=== PATIENT | male | born 1970 | race Caucasian/White ===

== ENCOUNTER 2018-09-15 00:36 | Inpatient (IN) | payer SELFPAY ==
[2018-09-15] VITALS (8 sets, daily range): BP systolic 142–171; BP diastolic 89–113; Ht 175.3 cm; Wt 87.7 kg
[~2018-09-15] VITALS: Ht 175.3 cm; Wt 87.7 kg
--- NOTE | 2018-09-15 01:20 | NUR ---
URINE SENT TO LAB
[2018-09-15 01:59] LABS: UDS - AMPHET POSITIVE QUAL (NEGATIVE); UDS - BARB NEGATIVE QUAL (NEGATIVE); UDS - BENZO NEGATIVE QUAL (NEGATIVE); UDS - COCAINE NEGATIVE QUAL (NEGATIVE); UDS - OPIATE NEGATIVE QUAL (NEGATIVE); UDS - PCP NEGATIVE QUAL (NEGATIVE); UDS - THC NEGATIVE QUAL (NEGATIVE)
[2018-09-15 02:04] LABS: BASOPHILS 0.1 % (0-2); EOSINOPHILS 0 % (0-7); HEMATOCRIT 38.5 % (42.0-54.0); HEMOGLOBIN 13.7 g/dL (13.5-17.5); IMMATURE GRANULOCYTES 0.4 % (0-5); LYMPHOCYTES 3.9 % (15-50); MCH 30.4 pg (26.0-34.0); MCHC 35.6 g/dL (31.0-37.0); MCV 85.4 fL (80.0-100.0); MEAN PLATELET VOLUME 10.5 fL (7.4-10.4); MONOCYTES 3.3 % (2-11); NEUTROPHILS 92.3 % (40-80); PLATELET COUNT 147 10x3/uL (130-400); RBC 4.51 10x6/uL (4.20-6.10); RDW 12.9 % (11.5-14.5); WBC 16.2 10x3/uL (4.8-10.8)
[2018-09-15 02:17] LABS: APTT 35.5 SECONDS (22.8-39.4); INR 1.94 (0.85-1.17); PROTIME 21.5 SECONDS (11.6-15.0)
[2018-09-15 02:18] LABS: D-DIMER-QUANTITATIVE 1.34 ug/mLFEU (0.20-0.54)
[2018-09-15 02:25] LABS: APPEARANCE HAZY (CLEAR); BILIRUBIN NEGATIVE (NEGATIVE); COLOR YELLOW (YELLOW); GLUCOSE NEGATIVE (NEGATIVE); KETONE NEGATIVE (NEGATIVE); NITRITE NEGATIVE (NEGATIVE); PROTEIN 3+ mg/dL (NEGATIVE); UROBILINOGEN NORMAL (NORMAL)
[2018-09-15 02:26] LABS: BACTERIA MODERATE /hpf (NONE SEEN); EPITHELIAL CELLS 0-5 /hpf (0-5); HYALINE CAST 0-5 /lpf (NONE SEEN); RED CELLS - URINE 0-5 /hpf (0-5); WHITE CELLS - URINE 0-5 /hpf (0-5)
[2018-09-15 02:36] LABS: ALBUMIN 2.4 g/dL (3.4-5.0); ALKALINE PHOSPHATASE 62 U/L (46-116); ALT (SGPT) 31 U/L (10-68); BILIRUBIN - TOTAL 1.89 mg/dL (0.2-1.3); CALC OSMOLALITY 277 mosm/kg (275-300); CALCIUM 7.5 mg/dL (8.5-10.1); CARBON DIOXIDE 22.4 mmol/L (21.0-32.0); CHLORIDE - SERUM 100 mmol/L (98-107); CKMB 0.5 U/L (0.0-3.6); CREATINE KINASE 184 UL (21-232); CREATININE - SERUM 1.6 mg/dL (0.6-1.3); GLUCOSE 140 mg/dL (74-106); SODIUM 135 mmol/L (136-145); UREA NITROGEN 29 mg/dL (7-18); eGFR NON AFRICAN AMERICAN 49 mL/min (90-120)
--- NOTE | 2018-09-15 02:40 | NUR ---
CALLED LAB TO CHECK ON PT CHEMISTRY PANEL. LAB STATED IT WAS BEING RUN. NOTIFIED DR. VALENZUELA. PT RESTING NO DISTRESS NOTED.
[2018-09-15 02:49] LABS: POTASSIUM - SERUM 2.8 mmol/L (3.5-5.1); TROPONIN-I 0.457 ng/mL (0.000-0.060)
--- NOTE | 2018-09-15 05:16 | NUR ---
RECIEVED REPORT FROM ER. ARRIVED TO FLOOR ON STRETCHER. TRANSFERED SELF TO BED. TOOK A SKOWER. IV TO LEFT FA WITH NS KCL INFUSING AT 125CC/HR. RIGHT LOWER EXTREMITY RED AND WARM. HAS SEVERAL SMALL SORES TO LEGS BILATERALLY. LETHARGIC AND HAS DIFFICULT TIME STAYING AWAKE AT TIMES. TAKES NO MEDICATIONS. TELEMETRY IN PLACE. DENIES ANY NEEDS AT THIS TIME.
--- NOTE | 2018-09-15 06:56 | NUR ---
BEDSIDE REPORT NOT ABLE TO BE DONE, PATIENT IS OFF THE FLOOR TO LUNG SCAN. WHITE BOARD UPDATED.
--- NOTE | 2018-09-15 07:28 | NUR ---
PATIENT ARRIVED BACK TO THE ROOM VIA BED. INTRODUCTIONS MADE, RESTARTED IVF TO THE LEFT WRIST. PATIENT SLEEPING ON HIS LEFT SIDE, HANDS SOILD, LIGHTS OFF, AND CARE LIGHT IN REACH.
[2018-09-15 09:24] LABS: CKMB 1.2 U/L (0.0-3.6); CREATINE KINASE 214 UL (21-232)
[2018-09-15 09:30] LABS: TROPONIN-I 0.378 ng/mL (0.000-0.060)
--- NOTE | 2018-09-15 13:02 | NUR ---
CALLED AND LEFT VOICE MAIL ON DR UNDERWOOD NURSE, DR UNDERWOOD IS HOSIERY MATER FOR DR LANG AT THIS TIME. AWAITING A RETURN CALL
--- NOTE | 2018-09-15 13:21 | NUR ---
DR GONZALES NOTIFIED IN PERSON ABOUT THE B/P
--- NOTE | 2018-09-15 13:49 | NUR ---
VERBAL ORDER TO "GO AHEAD AND FEED HIM", NO PROCEDURES WITH CELLULITIS, RISK OF INFECTION. FROM DR GONZALES
[2018-09-15 14:14] LABS: CKMB 1.4 U/L (0.0-3.6); CREATINE KINASE 236 UL (21-232)
--- NOTE | 2018-09-15 19:34 | NUR ---
EVENING ROUNDS MADE. PT LAYING IN BED RESTING PLAYING ON HIS PHONE. PT DENIES PAIN AT THIS TIME. EXAMINED PT BLE. RLE RED, SWOLLEN, WARM TO TOUCH. LLE SCABS/SORES NOTED, NO SWELLING. PT DENIES FURTHER NEEDS AT THIS TIME. BED LOWERED AND LOCKED. CL IN REACH. WILL CTM.
[2018-09-16] VITALS: BP 153/111
--- NOTE | 2018-09-16 00:40 | NUR ---
I have reviewed this patient and I concur with the Shift Assessment completed by the Licensed Practical Nurse today this shift.
--- NOTE | 2018-09-16 00:49 | NUR ---
APRESOLINE GIVEN VIA IV TO L FA FOR BP OF 170/115. PT DENIES FURTHER NEEDS AT THIS TIME. WILL CTM.
[2018-09-16 04:00] VITALS: BP 153/113
[2018-09-16 05:39] LABS: ALBUMIN 2.3 g/dL (3.4-5.0); BILIRUBIN - TOTAL 1.35 mg/dL (0.2-1.3); CALCIUM 7.6 mg/dL (8.5-10.1); CARBON DIOXIDE 24.1 mmol/L (21.0-32.0); CREATININE - SERUM 1.3 mg/dL (0.6-1.3); PROTEIN - SERUM 6.3 g/dL (6.4-8.2)
[2018-09-16 05:47] LABS: HEMATOCRIT 42.1 % (42.0-54.0); HEMOGLOBIN 14.5 g/dL (13.5-17.5); LYMPHOCYTES 4.1 % (15-50); MCH 30.2 pg (26.0-34.0); MCHC 34.4 g/dL (31.0-37.0); MEAN PLATELET VOLUME 10.6 fL (7.4-10.4); NEUTROPHILS 92.3 % (40-80); RDW 13.3 % (11.5-14.5); WBC 19.2 10x3/uL (4.8-10.8)
[2018-09-16 05:52] LABS: ANION GAP 11.5 mmol/L (8-16); POTASSIUM - SERUM 3.6 mmol/L (3.5-5.1)
[2018-09-16 05:54] LABS: MCV 87.7 fL (80.0-100.0); PLATELET COUNT 111 10x3/uL (130-400)
--- NOTE | 2018-09-16 07:23 | NUR ---
INITIAL ROUNDING, WHITE BOARD UPDATED. PATIENT IS AWAKE AND RESTING IN BED. CALL LIGHT IN REACH, PROVIDED A LARGE CUP OF ICE FOR HIS SODA. CARDIOLOGY CONSULT CALLED IN BY UNIT SEC, ELECTROLYTE PROTOCOL NEEDS NO COVERAGE TODAY. PATIENT REPORTS PAIN OF 5/10 IN THE RIGHT LEG, DECLINES THE NEED FOR PAIN MED AT THIS TIME
[2018-09-16 15:24] VITALS: BP 91/63
--- NOTE | 2018-09-16 19:20 | NUR ---
PT UP WALKING AROUND. GAIT STEADY, BUT SLOW. PT LAID BACK DOWN. DENIES ANY NEEDS. NO S/S OF DISTRESS. PT IS AAO. LEFT LEG NOTED TO BE BRIGHT RED, SWOLLEN, WARM AND TENDER APPROX 2 INCHES UNDER KNEE TO ANKLE. PT LEFT LEG HAS WHAT APPEARS TO BE BUG BITES ALL OVER LEG. PT DENIES ANY NEEDS. NAME AND DATE PLACED ON BOARD. BED LOW AND CALL LIGHT IN REACH. WILL CPOC
[2018-09-16 20:00] VITALS: BP 94/64
--- NOTE | 2018-09-16 20:12 | NUR ---
PT ASKING FOR WATER. PT RECEIVED. PLACED TELEMETRY BACK ONTO PT. PT HAS NO S/S OF DISTRESS. NS WITH KCL INFUSING ORDERED. PT BED LOW AND CALL LIGHT IN REACH. WILL CPOC
--- NOTE | 2018-09-16 20:40 | NUR ---
LOVENOX GIVEN. PT VERBALIZED UNDERSTANDING IN LOVENOX MEDICATION. NO S/S OF DISTRESS. WILL CPOC
--- NOTE | 2018-09-16 20:54 | NUR ---
PT COMPLAINS OF PAIN IN RIGHT LEG. TYLENOL GIVEN ORDERED. UNHOOKED PT FROM NS WITH 20 MEQ OF KCL TO ALLOW PT TO SHOWER WITH DISH UP PERSON ASSIST, PT WILL CALL ONCE DONE IN SHOWER. NO S/S OF DISTRESS. WILL CPOC
--- NOTE | 2018-09-17 01:13 | NUR ---
VANC STARTED ORDERED TO LEFT FOREARM. PT LAYING IN BED WITH EYES CLOSED. RESP EVEN AND UNLABORED. AROUSES TO VERBAL STIMULI. PT VERBALZIED UNDERSTANDING OF NPO AFTER MIDNIGHT. NO NOURISHMENT OR FOOD AT BED SIDE. NPO SIGN ON DOOR. PT DENIES ANY QUESTIONS OR CONCERNS. WILL CPOC
[2018-09-17 04:00] VITALS: BP 121/83
[2018-09-17 05:37] LABS: BASOPHILS 0.2 % (0-2); EOSINOPHILS 0.5 % (0-7); HEMATOCRIT 40.3 % (42.0-54.0); HEMOGLOBIN 13.7 g/dL (13.5-17.5); IMMATURE GRANULOCYTES 0.4 % (0-5); LYMPHOCYTES 8.2 % (15-50); MCV 88.2 fL (80.0-100.0); MONOCYTES 6.9 % (2-11); NEUTROPHILS 83.8 % (40-80); RBC 4.57 10x6/uL (4.20-6.10); RDW 13.8 % (11.5-14.5)
[2018-09-17 05:40] LABS: PLATELET COUNT 136 10x3/uL (130-400); WBC 12.4 10x3/uL (4.8-10.8)
[2018-09-17 05:45] LABS: ANION GAP 13.7 mmol/L (8-16); CARBON DIOXIDE 21.1 mmol/L (21.0-32.0); CREATININE - SERUM 1.4 mg/dL (0.6-1.3); POTASSIUM - SERUM 3.8 mmol/L (3.5-5.1)
--- NOTE | 2018-09-17 07:52 | NUR ---
PATIENT IS GETTING A SCAN TODAY. CARDIOLITE LEXISCAN BY [facility]. CHANGING HIS IV OUT RIGHT NOW, BECAUSE HIS CURRENT IV IS TENDER AND THEY HAVE TO INJECT ALOT OF FLUID TO DO THE STRESS TEST AT 10:00. AFTER THAT HE DOES WANT TO DISCHARGE IF POSSIBLE.
--- NOTE | 2018-09-17 08:22 | NUR ---
22GUAGE IV CATHETER PLACED RT AC. ASPIRATED AND FLUSHED WITH 3ML SALINE. SECURED WITH OPSITE AND TRANSPORE TAPE.
[2018-09-17 08:37] VITALS: BP 124/82
--- NOTE | 2018-09-17 09:02 | NUR ---
PATIENT IS RESTING ON HIS BACK IN BED AT THIS TIME, TALKING ON THE PHONE. HE STATES THAT HE DOES NOT WANT TO STAY AFTER HIS STRESS TEST. HE DOES HAVE A NEW IV IN HIS RIGHT ARM THAT WAS PLACED SO THAT HE CAN HAVE HIS STRESS TEST THIS MORNING SUCCESSFULLY. HE HAS REDDNESS ON HIS RIGHT LEG, IN THE CALF. HE IS AWAKE AND ALERT AND DENIES ANY NEEDS AT THIS TIME.
--- NOTE | 2018-09-17 12:11 | NUR ---
PATIENT IS BACK FROM THE FIRST PART OF HIS SCAN. NOW HE IS WAITING FOR THE SECOND PART OF THE STRESS TEST, WHEN THAT IS COMPLETE HE WANTS TO BE DISCHARGED SOON POSSIBLE.
[2018-09-17] MEDS ORDERED: LISINOPRIL10 MG PO (13:12)
[2018-09-17] MEDS ORDERED: COREG12.5 MG PO (13:12)
[2018-09-17] MEDS ORDERED: CLEOCIN HCL300 MG PO (13:13)
--- NOTE | 2018-09-17 13:47 | EC ---
PATIENT:YUSRA GONZALEZ DATE OF SERVICE: 09/15/18 SEX: M MEDICAL RECORD: [id number] DATE OF : [birth year] LOCATION:D.M2 D.214 AGE OF PATIENT: 48 ADMISSION DATE: 09/15/18 REFERRING PHYSICIAN: INTERPRETING PHYSICIAN: CIARA ODONNELL MD ECHOCARDIOGRAM REPORT ECHO CHARGES 4 ECHO COMPLETE Date: 09/15/18 CLINICAL DIAGNOSIS: POSSIBLE ENDOCARDITIS, CARDIOMEGALY ECHOCARDIOGRAPHIC MEASUREMENTS (adult normal given) AC root (d.<3.7cm) 4.0 cm LV Septum d (<1.2 cm> 1.3 cm Valve Excursion 1.5 cm LV Septum (systole) 1.7 cm Left Atria (s.<4.0cm> 4.1 cm LVPW d(<1.2cm) 1.4 cm RV (d.<2.3cm) 4.5 cm LVPW (sytole) 2.0 cm LV diastole(<5.6CM) 7.2 cm MV E-F(>70mm/sec) cm LV systole 5.4 cm LVOT Diameter 2.1 cm MV exc.(>10mm) 1.7 cm Est.ejection fraction (50-75%) % DOPPLER: LVIT cm/sec A 31.0 cm/sec E 105 cm/sec LA cm/sec RVSP 46 mmHg LVOT 62 cm/sec AOP1/2T m/s Asc. Ao 96 cm/sec RVOT 87 cm/sec RA cm/sec PA 97 cm/sec AV Gradient Peak 3.72 mmHg AV Mean 2.51 mmHg AV Area 1.7 cm MV Gradient Peak 5.77 mmHg MV Mean 1.82 mmHg MV Area cm COMMENTS: Nutritional Services Host: Jose LACY Cath Lab Manager: 1 Dr. Odonnell TAPE# PACS Pericardial Effusion N DATE OF SERVICE: 09/15/2018 FINDINGS: 1. Left ventricular chamber size is dilated. Left ventricular systolic function is markedly reduced. Overall ejection fraction in the 25% range. 2. Left atrium is enlarged at 4.1 cm. Right atrium and right ventricular chamber sizes are as well mildly dilated. 3. Valvular structures have normal structure and motion. 4. Doppler interrogation reveals moderate mitral regurgitation, moderate tricuspid regurgitation, no other valvular insufficiency or stenosis. Pulmonary ECHOCARDIOGRAM REPORT [id number] YUSRA GONZALEZ systolic pressure is estimated at 46 mmHg. 5. No evidence of pericardial effusion or left ventricular thrombus. TRANSINT:[id number] Voice Confirmation ID: [id number] DOCUMENT ID: [id number] CIARA ODONNELL MD at 1347 CC: [id number] DICTATION DATE: 09/17/18 1106 LOOM CLEANER: 09/17/18 1244 ADM IN [facility] [address] [id number]
--- NOTE | 2018-09-17 15:59 | NUR ---
PATIENT IS BEING DISCHARGED. ALL DISCHARGE PAPERS HAVE BEEN READ THROUGH AND SIGNED. PATIENT EDUCATION COMPLETED. IV IN LEFT AND RIGHT FOREARMS REMOVED WITH CATHETERS INTACT PATIENT TOLERATED. HE HAS REMOVED ALL HIS BELONGINGS FROM THE ROOM. HE IS LEAVING THE FLOOR BY WHEELCHAIR AND GOING HOME WITH A FAMILY MEMBER.
--- NOTE | 2018-09-17 16:51 | MORECARE ---
CASE MANAGEMENT DISCHARGE SUMMARY PATIENT: YUSRA GONZALEZ UNIT: [id number] ADM DATE: 09/15/18 AGE: 48 : [birth year] SEX: M ROOM/BED: D.2140 AUTHOR: RACH,DOC PHYSICIAN: REFERRING PHYSICIAN: CRISTINA GONZALES MD DATE OF SERVICE: 09/17/18 Discharge Plan Patient Name: YUSRA GONZALEZ Facility: [facility]:[place] : 1970 Planned Disposition: Home Anticipated Discharge Date: 09/17/18 Discharge Date: Expected LOS: 2 Initial Reviewer: [email or web address] Initial Review Date: 09/17/2018 Generated: 09/17/18 5:51 pm Comments DCP- Discharge Planning Updated by [email or web address]: Mika Brar on 09/17/18 3:[address] Patient Name: YUSRA GONZALEZ Admission Status: ER Accout number: [id number] Admission Date: 09-15-2018 : 1970 Admission Diagnosis:CELLULITIS OF RIGHT LOWER LIMB Attending: CRISTINA GONZALES Current LOS: 2 Anticipated DC Date: 09-17-2018 Planned Disposition: Home Primary Insurance: UNINSURED DISCOUNT PLAN Discharge Planning Comments: CM MET WITH PT IN ROOM TO DISCUSS DISCHARGE PLANNING AND NEEDS. PT REPORTS LIVING AT HOME INDEPENDENTLY WITH HIS MOTHER AND BROTHER. PT HAS NO MEDICAL EQUIPMENT AND NO OUTSIDE SERVICES ASSISTING IN THE HOME. CM DISCUSSED AVAILABILITY OF HOME HEALTH, REHAB SERVICES AND MEDICAL EQUIPMENT. PT DENIES DISCHARGE NEEDS, REPORTS HIS BROTHER WILL PICK HIM UP FOR DISCHARGE HOME. CM PROVIDED PT WITH [employer] DISCOUNT PROGRAM CARD. PT REPORTS MAKING TOO MUCH TO QUALIFY FOR MEDICAID OR GOVERNMENT INSURANCE UNDER AFFORDABLE HEALTHCARE ACT. PT REPORTS ABILITY TO AFFORD HIS MEDICATIONS. Candy Cutter Hand: Mika Brar DCPIA - Discharge Planning Initial Assessment Updated by [email or web address]: Mika Brar on 09/17/18 4:42 pm * Is the patient Alert and Oriented? Yes * How many steps to enter\exit or inside your home? * PCP DR. GONZALES * Pharmacy [facility], [facility]. * Preadmission Environment Home with Family * ADLs Independent * Equipment None * Other Equipment NO MEDICAL EQUIPMENT PROVIDER PREFERENCE * List name and contact numbers for known caregivers / representatives who currently or will assist patient after discharge: TOD GONZALEZ, BROTHER, * Verbal permission to speak to the caregivers and representatives has been obtained from the patient. N/A * Community resources currently utilized None * Please name any agencies selected above. NONE * Additional services required to return to the preadmission environment? No * Can the patient safely return to the preadmission environment? Yes * Has this patient been hospitalized within the prior 30 days at any hospital? No Patient Name: YUSRA GONZALEZ Page [id number] at 1651 All edits/amendments must be made on the electronic document DICTATION DATE: 09/17/181650 ELECTRONIC FIELD SERVICE ENGINEER: ADRIANNA 09/17/181650 RPT#: [id number] DC DATE: STATUS: ADM IN [facility] [address] [place] [address] END OF REPORT
== END 2018-09-17 17:00 | disposition home or self-care (01) | DRG 602 ==
LOC: D.ER 00:36 → D.M2 03:34
PROVIDERS: Emergency Medicine; ADMIT Family Medicine; ATTEND Family Medicine
DX: L03.115 Cellulitis of right lower limb (principal); I21.A1 Myocardial infarction type 2; I50.22 Chronic systolic (congestive) heart failure; I16.0 Hypertensive urgency; F15.10 Other stimulant abuse, uncomplicated; E87.6 Hypokalemia; L95.9 Vasculitis limited to the skin, unspecified; I11.0 Hypertensive heart disease with heart failure; R73.9 Hyperglycemia, unspecified; N28.9 Disorder of kidney and ureter, unspecified

== ENCOUNTER 2019-11-01 23:16 | Day surgery (SDC) | payer SELFPAY ==
[~2019-11-01] VITALS: Ht 172.7 cm; Wt 77.3 kg
--- NOTE | ~2019-11-01 | HEMODYNAMI ---
PATIENT:YUSRA GONZALEZ MEDICAL RECORD: [id number] : 68 [id number] ADMISSION DATE: 11/01/19 Generatedon:11/02/201911:02 Patient name: YUSRA GONZALEZ Patient #: [id number] : 1970 Date of study: 11/02/2019 Page: Of Hemodynamic Procedure Report Patient Data Patient Demographics Procedure consent was obtained First Name: YUSRA Gender: Male Last Name: CARLOS : 1970 Middle Initial: A Age: 49 year(s) Patient #: [id number] Race: SSN: [id number] Additional ID: [id number] Contact details Address: [facility] [address] State: [place] City: [place] Zip code: [address] Past Medical History Allergies: No known allergies Admission Admission Data Admission Date: 11/01/2019 Admission Time: 23:16 Lab Results Lab Result Date: 11/02/2019 Lab Result Time: 0:00 Biochemistry Name Units Result Min Max BUN mg/dl 27 --(----)-* 7 18 Creatinine mg/dl 1.8 --(----)-* 0.6 1.3 eGFR ml/min 43 *-(----)-- 90 120 NONAFRICAN CBC Name Units Result Min Max Hemoglobin g/dl 15.7 --(--*-)-- 13.5 17.5 Procedure Procedure Types Cath Procedure Diagnostic Procedure LHC LH w/Coronaries Sedation Charges Moderate Sedation up to 30 minutes PCI Procedure Coronary Stent Coronary Stent Initial Hemochron ACT Test Procedure Description Procedure Date Procedure Date: 11/02/2019 Procedure Start Time: 10:14 Procedure End Time: 10:49 Procedure Staff Name Function Jeanne Pitt RT Monitor Karl Foley MD Performing Physician Larry Stuart RN Nurse Naomy Bro RT Scrub Procedure Data Cath Procedure Fluoroscopy Diagnostic fluoroscopy Total fluoroscopy Time: 8.1 time: 8.1 min min Diagnostic fluoroscopy Total fluoroscopy dose: dose: 1878 mGy 1878 mGy Contrast Material Contrast Material Type Amount (ml) Isovue 300 157 Entry Location Entry Primary Successful Side Size Upsize Upsize Entry Closure Succes sful Closure Location (Fr) 1 (Fr) 2 (Fr) Remarks Device Remarks Femoral Right 5 Fr 6 Fr Exoseal artery Short Estimated blood loss: 5 ml Diagnostic catheters Device Type Used For End Catheter Placement MULTIPACK JL 4.0 5Fr Left Coronary catheter Angiography MULTIPACK 3DRC 5Fr Right Coronary catheter Angiography MULTIPACK Pigtail 5 Fr LV Angiography catheter DIAGNOSTIC 6Fr JL 4.0 Multi-vessel catheter ([id number]) Angiography Procedure Complications No complications Procedure Medications Medication Administration Route Dosage 0.9% NaCl I.V. 100 ml/hr Oxygen etCO2 Nasal cannula 2 l/min Heparin Flush Bag added to field 2 bags (1000units/500ml NS) Lidocaine 2% added to field 20 Versed I.V. 1 mg Fentanyl I.V. 50 mcg Cardene 5 mg/hr Cardene 5 mg/hr Versed I.V. 1 mg Fentanyl I.V. 50 mcg Heparin Bolus I.V. 4000 units Integrilin (Bolus I.V. 6.8 ml 2mg/ml) Integrilin (Bolus wasted 3.2 ml 2mg/ml) Plavix P.O. 600 mg Hemodynamics Rest HGB: 15.7 (g/dl) Heart Rate: 93 (bpm) Pressure Samples Time Site Value (mmHg) Purpose Heart Use Rate(bpm) 10:20 LV 104/14,17 Snapshot 84 Snapshots Pre Cath Intra NCS Post Cath Vital Signs Time Heart Resp SPO2 etCO2 NIBP (mmHg) Rhythm Pain Sedation Rate (ipm) (%) (mmHg) Status Level (bpm) 10:02:57 82 26 92 0 130/72(93) NSR 0 (11) 10(A) , No pain 10:06:55 90 23 94 0 132/64(88) NSR 0 (11) 10(A) , No pain 10:11:21 88 23 95 25.5 128/69(90) NSR 0 (11) 10(A) , No pain 10:16:41 90 17 93 30 122/73(104) NSR 0 (11) 10(A) , No pain 10:20:34 83 16 93 30.1 121/72(92) NSR 0 (11) 9(A) , No pain 10:25:07 84 16 92 30.1 132/64(97) NSR 0 (11) 9(A) , No pain 10:30:42 84 18 95 32.3 128/61(109) NSR 0 (11) 9(A) , No pain 10:35:11 84 17 96 34.5 124/84(109) NSR 0 (11) 9(A) , No pain 10:39:06 83 17 95 32.3 126/68(111) NSR 0 (11) 9(A) , No pain 10:43:06 83 17 96 33 129/62(102) NSR 0 (11) 9(A) , No pain 10:47:32 83 17 94 32.3 150/76(104) NSR 0 (11) 9(A) , No pain Medications Time Medication Route Dose Verified Delivered Reason Note s Effectiveness by by 10:12:14 0.9% NaCl I.V. 100 Larry Larry Per physician ml/hr Narciso Stuart RN RN 10:12:27 Oxygen etCO2 2 Larry Larry for low 02 sats Nasal l/min Lorigan Lortoni cannula RN RN 10:12:41 Heparin Flush added to 2 Larry Larry used for Bag field bags Lortoni Stuart procedure (1000units/500ml RN RN NS) 10:12:52 Lidocaine 2% added to 20ml Larry Larry for local field vial Lorigan Narciso anesthetic RN RN 10:13:04 Versed I.V. 1 mg Larry Larry for sedation Narciso Stuart RN RN 10:13:11 Fentanyl I.V. 50 Larry Larry for sedation mcg Narciso Stuart RN RN 10:14:35 Cardene I.V. ( 5 Larry Larry for infusing mg/hr Lorigan Lorigan hypertension upon RN RN arrival ) 10:15:13 Cardene I.V. 5 Larry Larry for stopped mg/hr Lorigan Lorigan hypertension RN RN 10:17:26 Versed I.V. 1 mg Larry Larry for sedation Narciso Stuart RN RN 10:17:32 Fentanyl I.V. 50 Larry Larry for sedation mcg Narciso Stuart RN RN 10:25:14 Heparin Bolus I.V. 4000 Larry Larry for units Lorigan Lorigan anticoagulation RN RN 10:39:04 Integrilin I.V. 6.8 Larry Larry for (Bolus 2mg/ml) ml Narciso Stuart antiplatelet RN RN therapy 10:39:23 Integrilin wasted 3.2 Larry Larry to sharp's (Bolus 2mg/ml) ml Narciso Stuart RN RN 10:49:34 Plavix P.O. 600 Larry Juarez for mg Narciso Stuart antiplatelet RN RN therapy Procedure Log Time Note 9:37:01 Diagnostic Cath Status : Urgent 9:37:20 Procedure Status Urgent Heart Cath (IP). 9:37:22 Larry Stuart RN sent for patient. Start room use. 9:37:23 Time tracking: Regular hours (M-F 7:00 - 5:00) 9:37:27 Plan of Care:Hemodynamics will remain stable., Cardiac rhythm will remain stable., Comfort level will be maintained., Respiratory function will remain adequate., Patient/ family verbilizes understanding of procedure., Procedure tolerated without complication., Recovers from procedure without complications.. 9:41:54 Informed consent obtained and on chart 9:44:40 Lab Result : eGFR NONAFRICAN 43 ml/min 9:44:40 Lab Result : Hemoglobin 15.7 g/dl 9:44:40 Lab Result : BUN 27 mg/dl 9:44:40 Lab Result : Creatinine 1.8 mg/dl 9:56:34 Patient received from ED to CCL 2 Alert and oriented. Tansferred to table in Supine position. 9:56:35 Warm blankets applied, and keke hugger turned on for patient comfort. 9:56:36 ECG and BP/O2 sat monitors applied to patient. 9:56:36 Correct patient and procedure confirmed by team. 10:02:14 Vital chart was started 10:02:33 H&P Date Dictated: 11/02/2019 ER History on chart.. 10:02:36 Baseline sample Acquired. 10:03:05 Rhythm: sinus rhythm 10:03:07 Full Disclosure recording started 10:03:08 - 10:03:13 Pre-procedure instructions explained to patient. 10:03:14 Pre-op teaching completed and patient verbalized understanding. 10:03:32 Patient allergic to No known allergies 10:06:02 Family unavailable. 10:06:03 Patient NPO since Midnight. 10:06:05 Is the patient allergic to Iodine/contrast media? No. 10:06:06 Was the patient premedicated? Yes 10:06:28 Is patient on blood thinner?Yes 10:06:31 ACC The patient was administered the following blood thiners within the last 24 hours: ACCLovenox 10:06:34 Patient diabetic? No. 10:06:36 Previous problem with sedation/anesthesia? No ? 10:06:46 Snore? Yes 10:06:47 Deviated septum? No 10:06:47 Sleep apnea? No 10:06:48 Opens mouth fully? Yes 10:06:49 Sticks out tongue? Yes 10:06:51 Airway obstruction? No ? 10:06:56 Dentures? No ? 10:07:02 Pre procedure: right dorsailis pedis pulse 1+ Palpable, but thready & weak; easily obliterated 10:07:05 Pre procedure: left dorsailis pedis pulse 1+ Palpable, but thready & weak; easily obliterated 10:07:08 Patient pain scale 0/10 ?. 10:07:16 IV patent on arrival in left forearm with 0.9% NaCl at KVO. 10:07:20 Lab results completed and on chart. 10:07:25 Stress Test: no; N/A ? 10:07:29 Right groin area was prepped with chlora-prep and draped in sterile fashion 10:07:30 Sharps counted by scrub and verified by R.N. 10:07:30 Alarms reviewed by R. N. 10:07:31 Physician arrived 10:07:32 --------ALL STOP TIME OUT------ 10:07:36 Final Timeout: patient, procedure, and site verified with staff and physician. All members of the team are in agreement. 10:07:38 Right groin site verified by team. 10:07:42 Fire Safety Assessment: A--An alcohol-based skin anteseptic being used preoperatively., C--Open oxygen or nitrous oxide is being used., D--An ESU, laser, or fiber-optic light is being used. 10:07:46 Physical assessment completed. ASA score P 2 - A patient with mild systemic disease as per Karl Foley MD. 10:08:14 3b) 30-44 Moderately reduced kidney function. 10:08:18 Maximum allowable contrast dose (3.7 X eGFR X 0.75)119 ml. 10:08:22 Sedation plan: IV Moderate Sedation Medication:Versed, Fentanyl 10:08:27 ACIST Syringe (18231) opened to sterile field. 10:08:27 Use device set Femoral Dx 10:08:28 Medline Cath Pack ([id number]) opened to sterile field. 10:08:28 Bag Decanter (2002S) opened to sterile field. 10:08:29 ACIST Hand Control (78623) opened to sterile field. 10:08:30 Tegaderm 4 x 4 (1626W) opened to sterile field. 10:08:30 DIAGNOSTIC Multipack 5Fr catheter set ([id number]) opened to sterile field. 10:08:30 ACIST Manifold (06707) opened to sterile field. 10:08:31 SHEATH 5FR Bitely (OZN852) opened to sterile field. 10:08:32 EMERALD Guide Wire (518-423) opened to sterile field. 10:11:32 Zero performed for pressure channel P1 10:11:44 Zero performed for pressure channel P1 10:12:14 0.9% NaCl 100 ml/hr I.V. was administered by Larry Stuart RN; Per physician; Verbal order read back and verified. 10:12:27 Oxygen 2 l/min etCO2 Nasal cannula was administered by Larry Stuart RN; for low 02 sats; Verbal order read back and verified. 10:12:41 Heparin Flush Bag (1000units/500ml NS) 2 bags added to field was administered by Larry Stuart RN; used for procedure; Verbal order read back and verified. 10:12:52 Lidocaine 2% 20ml vial added to field was administered by Larry Stuart RN; for local anesthetic; Verbal order read back and verified. 10:13:04 Versed 1 mg I.V. was administered by Larry Stuart RN; for sedation; Verbal order read back and verified. 10:13:11 Fentanyl 50 mcg I.V. was administered by Larry Stuart RN; for sedation; Verbal order read back and verified. 10:14:09 Procedure started. 10:14:12 Local anesthetic to right femoral artery with Lidocaine 2% by Karl Villar MD.INITIAL ACCESS ONLY 10:14:26 A 5 Fr sheath was inserted into the Right Femoral artery 10:14:35 Cardene 5 mg/hr I.V. ( infusing upon arrival ) was administered by Larry Stuart RN; for hypertension; Verbal order read back and verified. 10:15:01 A MULTIPACK JL 4.0 5Fr catheter was advanced over the wire and used for Left Coronary Angiography. 10:15:13 Cardene 5 mg/hr I.V. stopped was administered by Larry Stuart RN; fo r hypertension; Verbal order read back and verified. 10:16:30 LCA angiography performed. 10:16:33 Injector settings: Ml/sec: 3, Volume: 6, 10:17:22 Catheter removed. 10:17:26 A MULTIPACK 3DRC 5Fr catheter was advanced over the wire and used for Right Coronary Angiography. 10:17:26 Versed 1 mg I.V. was administered by Larry Stuart RN; for sedation; Verbal order read back and verified. 10:17:32 Fentanyl 50 mcg I.V. was administered by Larry Stuart RN; for sedation; Verbal order read back and verified. 10:18:51 RCA angiography performed. 10:18:53 Injector settings: Ml/sec: 3, Volume: 6, 10:19:24 Catheter removed. 10:19:35 A MULTIPACK Pigtail 5 Fr catheter was advanced over the wire and used for LV Angiography. 10:20:39 LV hemodynamics recorded. 10:20:40 LV gram done using BYRNE 10:20:42 Injector settings: Ml/sec: 5, Volume: 15, 10:20:52 EF : 15 % 10:21:10 WHISPER 300cm guide wire ([id number]) opened to sterile field. 10:21:11 INFLATOR Merit BasixCompak (CE4717) opened to sterile field. 10:21:12 SHEATH 6FR Bitely (XFA097) opened to sterile field. 10:22:12 [place] Verrata Plus pressure wire (24056Y) opened to sterile field. 10:22:23 Proceeding to intervention. 10:22:33 ACC Pre-intervention ZURDO Flow is 3. 10:22:42 Sheath upsized to a 6 Fr Short. 10:22:56 6 Fr xblad 3.5 guide catheter was inserted over the wire 10:23:03 GUIDE 6FR XBLAD 3.5 catheter ([id number]) opened to sterile field. 10:24:03 FFR/IFR wire advanced. 10:25:14 Heparin Bolus 4000 units I.V. was administered by Larry Stuart RN; for anticoagulation; Verbal order read back and verified. 10:28:11 Wire removed. 10:28:49 j wire used to redirect guide catheter; j wire removed 10:28:53 FFR/IFR wire advanced. 10:31:53 Wire removed. 10:32:05 A DIAGNOSTIC 6Fr JL 4.0 catheter ([id number]) was advanced over the wire and used for Multi-vessel Angiography. 10:32:11 Guide Catheter removed. unable to cannulate vessel. 10:32:18 6 Fr jl 4 guide catheter was inserted over the wire 10:32:28 FFR/IFR wire advanced. 10:34:17 Wire advanced across lesion. 10:34:29 Baseline FFR 1. 10:36:40 mLAD lesion measured at 0.78 with IFR 10:39:04 Integrilin (Bolus 2mg/ml) 6.8 ml I.V. was administered by Larry Stuart RN; for antiplatelet therapy; Verbal order read back and verified. 10:39:23 Integrilin (Bolus 2mg/ml) 3.2 ml wasted was administered by Larry Stuart RN; to sharp's; Verbal order read back and verified. 10:40:43 Place stent Inflation Number: 1 A INTEGRITY RX 3.5 x 18 stent ([id number]) was prepped and advanced across the Mid LAD 90. The stent was deployed at 14 RAVEN for 0:30 (min:sec) 0. 10:41:00 Stent catheter was removed intact over wire. 10:44:04 Place stent Inflation Number: 2 A INTEGRITY RX 3.5 x 15 stent ([id number]) was prepped and advanced across the Mid LAD 90. The stent was deployed at 14 RAVEN for 0:30 (min:sec) 0. 10:44:25 Wire removed. 10:44:25 Stent catheter was removed intact over wire. 10:44:27 Guide catheter removed. 10:45:33 EXOSEAL 6Fr (EX600) opened to sterile field. 10:45:42 Sheath removed intact; hemostasis achieved with Exoseal to the Right Femoral artery. 10:45:44 Procedure ended.(Physican Out) 10:46:10 Fluoroscopy time 08.10 minutes. 10:46:14 Fluoroscopy dose: 1878 mGy 10:46:14 Flurop Dose total: 1878 10:46:19 Dose Area Product 61363 mGy/cm. 10:46:23 Contrast amount:Isovue 300 157ml. 10:46:24 Maximum allowable dose exceeded? No. 10:48:03 Sharps counted by scrub and verified by R.N. 10:48:06 Insertion/operative site no bleeding no hematoma. 10:48:10 Post-op/insertion site Right Femoral artery dressed using a 4 x 4 and Tegaderm. 10:48:13 Post Procedure Pulses reassessed and unchanged 10:48:16 Post procedure rhythm: unchanged. 10:48:18 Estimated blood loss: 5 ml 10:48:19 Post procedure instruction explained to patient.Patient verbalizes understanding. 10:48:20 Patient needs reinforcement of post procedure teaching. 10:49:14 Procedure type changed to Cath procedure, Diagnostic procedure, LHC, C w/Coronaries, Sedation Charges, Moderate Sedation up to 30 minutes, PCI procedure, Coronary Stent, Coronary Stent Initial, Hemochron ACT Test 10:49:16 Procedure and supply charges have been captured, reviewed, submitted an d are correct. 10:49:21 Procedure Complication : No complications 10:49:22 Vital chart was stopped 10:49:24 [facility] Findings: MVD- PCI performed (see procedure note) 10:49:25 Operative report dictated upon procedure completion. 10:49:26 See physician's report for complete and final results. 10:49:34 Plavix 600 mg P.O. was administered by Larry Stuart RN; for antiplatelet therapy; Verbal order read back and verified. 10:49:36 Report given to Pre/Post Procedure Room. 10:49:38 Patient transfered to Pre/Post Procedure Room with Stretcher. 10:49:43 Full Disclosure recording stopped 10:49:43 Procedure ended. 11:00:56 ACT drawn and resulted at 213 seconds. (normal therapeutic range 180-24 0 seconds). 11:01:18 ACC-PCI Only Patient was given prescriptions, or instructed by Karl Foley MD to start/continue the following medications upon discharge: Plavix 11:01:21 End room use (Document Last) 11:01:31 End room use (Document Last) 11:02:38 End room use (Document Last) Intervention Summary Intervention Notes Time ActionType Lesion and Equipment Action# Pressure Duration Attributes Used 10:40:43 Place stent Mid LAD INTEGRITY RX 1 14 00:30 3.5 x 18 stent ([id number]) 10:44:04 Place stent Mid LAD INTEGRITY RX 2 14 00:30 3.5 x 15 stent ([id number]) Device Usage Item Name Manufacture Quantity Catalog Hospital Part Current Mini mal Lot# / Number Charge Number Stock Stock Serial# Code ACIST Acist 1 55920 159110 257693 339942 20 Syringe Medical (72306) Systems Inc Bag Decanter Microtek 1 2002S 524487 64842 986665 5 (2001S) Medical Inc. Medline Cath Medline 1 [id number] 722140 29106 349535 5 Pack ([id number]) ACIST Hand Acist 1 81870 341416 057759 518402 5 Control Medical (78136) Systems Inc ACIST Acist 1 59108 149884 443511 896393 5 Manifold Medical (36907) Systems Inc DIAGNOSTIC Cardinal 1 VS0335 125574 10889 935655 30 Multipack Health 5Fr catheter set (YK3965) Tegaderm 4 x 3M 1 1626W 667641 706507 679977 5 4 (1626W) SHEATH 5FR Terumo 1 CQX708 713234 924811 671303 5 Bitely (HNV668) EMERALD Cardinal 1 502-455 532436 675766 405952 5 Guide Wire [facility] (637-604) MULTIPACK JL Cardinal 1 085959 5 4.0 5Fr Health catheter MULTIPACK Cardinal 1 221558 5 3DRC 5Fr Health catheter MULTIPACK Cardinal 1 786761 5 Pigtail 5 Fr Health catheter WHISPER [place] 1 [id number] 180612 490841 451757 5 300cm guide Vascular wire (6013839DY) INFLATOR Merit 1 EY8418 191781 236786 212667 15 Merit Medical BasixCompak (QS9793) SHEATH 6FR Terumo 1 MZW512 879147 104731 039904 40 Bitely (QZH566) [place] 1 67838K 662251 475975854 222118 5 Verrata Plus pressure wire (67300S) GUIDE 6FR Cardinal 1 77358294 056434 438588 426723 10 XBLAD 3.5 Health catheter (22268831) DIAGNOSTIC Cardinal 1 527043N 566362 199731 922537 1 6Fr JL 4.0 Health catheter (997286M) INTEGRITY RX Medtronic 1 [id number] 695806 272246 485160 5 [id number] 3.5 x 18 stent ([id number]) INTEGRITY RX Medtronic 1 [id number] 737671 032479 287348 5 [id number] 3.5 x 15 stent ([id number]) EXOSEAL 6Fr Cardinal 1 EX600 402088 446771 247021 10 (EX600) Health Signature Audit [place] Stage Time Signature Unsigned Intra-Procedure 11/02/2019 Jeanne Foley MD; 10:50:07 AM RT(R); Larry Pitt RT(R); Jeanne Stuart RN; Yoandy RT(R); Jeanne Sanz RT(R); Jeanne Villar MD; Yoandy RT(R); Jeanne Pitt RT(R); Larry RT(R) Narciso STILES; Karl Foley MD; Naomy Bro RT(R) 11/02/2019 11:00:43 AM Intra-Procedure 11/02/2019 Naomy Bro 11:01:31 AM RT(R) Intra-Procedure 11/02/2019 Larry 11:02:13 AM Narciso STILES Intra-Procedure 11/02/2019 Jeanne Pitt 11:02:38 AM RT(R) Intra-Procedure 11/02/2019 Karl Suarez 11:02:57 AM Jian SAEED [address], [facility]
--- NOTE | ~2019-11-01 | OP ---
PATIENT NAME: YUSRA GONZALEZ MEDICAL RECORD: [id number] :68 LOCATION:D.CAT ADMISSION DATE: SURGEON: JOE SCHAEFFER MD DATE OF OPERATION: 11/02/2019 PROCEDURE: Left heart catheterization, selective coronary angiography, right femoral artery approach. CATHETERS: A 5-Monegasque sheath, 5/4 left and right Radha, 5/4 pig. The procedure was well tolerated. Proceed to IFR wire as well as a PTCA stenting to LAD as procedure was finished. FINDINGS: Left ventriculography in 30-degree BYRNE view shows severe global hypokinesis with reduced EF, estimated EF 15%. CORONARY ANATOMY: LEFT MAIN: Left main is free of disease. LAD: Appears to show two 80% stenosis, this confirmed with abnormal IFR wire at 0.74. CIRCUMFLEX: Left dominant system. Circumflex has 80% stenosis, more discrete distally. RIGHT CORONARY ARTERY: Totally occluded, but rudimentary. IMPRESSION AND PLAN: Intervention to LAD momentarily. DESCRIPTION OF PROCEDURE: A 5-Monegasque sheath was exchanged for a 6-Monegasque sheath, XB LAD guiding catheter provided excellent guide catheter support. We used a IFR wire to confirm the significance of the LAD lesion of 80%. This was confirmed. Next, stents were placed in following fashion, a 3.5 x 18 mm and a 3.5 x 15 mm, both nondrug-eluting stents up to 14 atmospheres. Final angiography shows excellent resolution of two 80% stenosis, no significant residual. ZURDO flow was 3 throughout the procedure appetite. Heparin and Integrilin were used during the case. Plavix was loaded in the lab. We will plan intervention of the circumflex at later date. We will add Aldactone for his mild cardiomyopathy. Hopefully, he will be more compliant with his myopathic medications if not long-term prognosis is obviously guarded. TRANSINT:[id number] Voice Confirmation ID: [id number] DOCUMENT ID: [id number] JOE SCHAEFFER MD CC: [id number] DICTATION DATE: 11/02/19 1103 PREFORMING MACHINE OPERATOR: 11/02/19 1433 [facility] [address] [id number]
[~2019-11-01 23:16] MED LIST: CLEOCIN HCL300 MG PO; COREG12.5 MG PO; LISINOPRIL10 MG PO
[2019-11-01 23:55] LABS: APTT 30.9 SECONDS (22.8-39.4); HEMATOCRIT 48.3 % (42.0-54.0); HEMOGLOBIN 15.7 g/dL (13.5-17.5); INR 1.27 (0.85-1.17); LYMPHOCYTES 15.8 % (15-50); MCH 29.7 pg (26.0-34.0); MCHC 32.5 g/dL (31.0-37.0); MCV 91.3 fL (80.0-100.0); MEAN PLATELET VOLUME 10.4 fL (7.4-10.4); NEUTROPHILS 78.4 % (40-80); PROTIME 15.8 SECONDS (11.6-15.0); RBC 5.29 10x6/uL (4.20-6.10); RDW 13.8 % (11.5-14.5); WBC 9.7 10x3/uL (4.8-10.8)
[2019-11-01 23:57] LABS: PLATELET COUNT 219 10x3/uL (130-400)
[2019-11-02 00:09] LABS: CALC OSMOLALITY 287 mosm/kg (275-300); CALCIUM 8.8 mg/dL (8.5-10.1); CARBON DIOXIDE 30.1 mmol/L (21.0-32.0); CHLORIDE - SERUM 102 mmol/L (98-107); CREATININE - SERUM 1.8 mg/dL (0.6-1.3); GLUCOSE 165 mg/dL (74-106); POTASSIUM - SERUM 3.8 mmol/L (3.5-5.1); SODIUM 140 mmol/L (136-145); UREA NITROGEN 27 mg/dL (7-18); eGFR NON AFRICAN AMERICAN 43 mL/min (90-120)
[2019-11-02 00:30] LABS: ALBUMIN 3.5 g/dL (3.4-5.0); ALKALINE PHOSPHATASE 108 U/L (30-120); ALT (SGPT) 100 U/L (10-68); BILIRUBIN - TOTAL 0.68 mg/dL (0.2-1.3); CKMB 4.3 U/L (0.0-3.6); CREATINE KINASE 141 UL (21-232); PRO BNP 5533 pg/mL (0-125); PROTEIN - SERUM 6.8 g/dL (6.4-8.2)
[2019-11-02 00:39] LABS: TROPONIN-I 0.119 ng/mL (0.000-0.060)
[2019-11-02 01:51] LABS: BILIRUBIN NEGATIVE (NEGATIVE); KETONE NEGATIVE (NEGATIVE); NITRITE NEGATIVE (NEGATIVE); UROBILINOGEN NORMAL (NORMAL)
[2019-11-02 01:55] LABS: UDS - AMPHET POSITIVE QUAL (NEGATIVE); UDS - BARB NEGATIVE QUAL (NEGATIVE); UDS - BENZO NEGATIVE QUAL (NEGATIVE); UDS - COCAINE NEGATIVE QUAL (NEGATIVE); UDS - OPIATE NEGATIVE QUAL (NEGATIVE); UDS - PCP NEGATIVE QUAL (NEGATIVE); UDS - THC NEGATIVE QUAL (NEGATIVE)
[2019-11-02 09:30] VITALS: BP 118/69
[2019-11-02 09:44] VITALS: Ht 172.7 cm; Wt 77.3 kg
[2019-11-02 09:45] LABS: BASOPHILS 0.3 % (0-2); EOSINOPHILS 1.8 % (0-7); HEMATOCRIT 44.9 % (42.0-54.0); HEMOGLOBIN 14.7 g/dL (13.5-17.5); IMMATURE GRANULOCYTES 0.2 % (0-5); LYMPHOCYTES 11.7 % (15-50); MCH 29.7 pg (26.0-34.0); MCHC 32.7 g/dL (31.0-37.0); MCV 90.7 fL (80.0-100.0); MEAN PLATELET VOLUME 10.2 fL (7.4-10.4); MONOCYTES 5.6 % (2-11); NEUTROPHILS 80.4 % (40-80); PLATELET COUNT 249 10x3/uL (130-400); RBC 4.95 10x6/uL (4.20-6.10); RDW 13.2 % (11.5-14.5); WBC 9.7 10x3/uL (4.8-10.8)
[2019-11-02 10:07] LABS: CALCIUM 8.4 mg/dL (8.5-10.1); CARBON DIOXIDE 28.8 mmol/L (21.0-32.0); CREATININE - SERUM 1.6 mg/dL (0.6-1.3); LDL-HDL RATIO 2.6 ratio (1.5-3.5); POTASSIUM - SERUM 3.8 mmol/L (3.5-5.1)
[2019-11-02] MEDS ORDERED: PLAVIX75 MG PO (11:17)
[2019-11-02] MEDS ORDERED: ALDACTONE25 MG PO (11:18)
--- NOTE | 2019-11-02 11:20 | NUR ---
R GROIN SITE SOFT, NO S/S BLEEDING OR HEMATOMA. PULSES PALP. B/P 125/69, HR 87. PT RESTING QUIETLY, ALARMS ON AND C/L IN REACH.
--- NOTE | 2019-11-02 11:23 | NUR ---
PT REC'D TO ROOM 2 VIA STRETCHER FROM MOBILE PET GROOMER. MONITORS ESTAB. NO FAMILY AT BS. SEE RUBBER GOODS FINISHER. ALARMS ON AND C/L IN REACH.
--- NOTE | 2019-11-02 11:50 | NUR ---
R GROIN SITE SOFT, NO S/S BLEEDING OR HEMATOMA. PULSES PALP. VSS. ALARMS ON AND C/L IN REACH.
--- NOTE | 2019-11-02 12:05 | NUR ---
PT RESTING QUIETLY. VSS. R GROIN SITE SOFT, NO S/S BLEEDING OR HEMATOMA. R LEG/FOOT WARM WITH PALP PULSES. ALARMS ON AND C/L IN REACH.
--- NOTE | 2019-11-02 12:35 | NUR ---
R GROIN SITE SOFT, NO S/S BLEEDING OR HEMATOMA. ALARMS ON AND C/L IN REACH.
--- NOTE | 2019-11-02 12:45 | NUR ---
BROTHER AT , UPDATED. R GROIN SITE C/D/I, NO S/S BLEEDING OR HEMATOMA. PULSES PALP. C/L IN REACH.
--- NOTE | 2019-11-02 13:15 | NUR ---
R GROIN SITE C/D/I, NO S/S BLEEDING OR HEMATOMA. VSS. PT DENIES PAIN OR NEEDS. PULSES EASILY PALP. C/L IN REACH.
[2019-11-02] MEDS ORDERED: BAYER CHEWABLE81 MG PO (13:42)
--- NOTE | 2019-11-02 13:45 | NUR ---
R GROIN SITE SOFT, NO S/S BLEEDING OR SWELLING. PULSES PALP. VSS.
--- NOTE | 2019-11-02 14:05 | NUR ---
R GROIN SITE C/D/I, NO S/S BLEEDING OR HEMATOM. HOB ELEVATED, SANDWICH TRAY AND COLA PROVIDED. VSS. C/L IN REACH.
--- NOTE | 2019-11-02 14:30 | NUR ---
PT ATE ALL OF SANDWICH, NO N/V. R GROIN SITE C/D/I, NO S/S BLEEDING OR HEAMTAMA. VSS.
--- NOTE | 2019-11-02 14:43 | NUR ---
ALL DISCHARGE INSTRUCTIONS, INCLUDING NEW MEDICATIONS, RESTRICTIONS, AND PRE PROCEDURE INSTRUCTIONS FOR 11/08/19. BOTH PT AND BROTHER VERBALIZE UNDERSTANDING.
--- NOTE | 2019-11-02 14:50 | NUR ---
R GROIN SITE SOFT, C/D/I. PIV D/C'D INTACT, DSG APPLIED. PT ALLOWED UP TO GET DRESSED AND GO TO BR INDEPENDENTLY.
--- NOTE | 2019-11-02 15:00 | NUR ---
PT D/C'D VIA WC TO PRIVATE VEHICLE WITH ALL PAPER WORK AND BELONGINGS.
== END 2019-11-02 15:00 | disposition home or self-care (01) ==
LOC: D.ER 23:16 → D.CATH 23:16 → D.ER 11-02 10:26 → D.CATH 11-02 15:00
PROVIDERS: Internal Medicine Interventional Cardiology; ATTEND Family Medicine
DX: R94.39 Abnormal result of other cardiovascular function study (principal); I25.10 Atherosclerotic heart disease of native coronary artery without angina pectoris; I10 Essential (primary) hypertension; I25.2 Old myocardial infarction; I42.9 Cardiomyopathy, unspecified; R06.00 Dyspnea, unspecified; I50.9 Heart failure, unspecified; I65.22 Occlusion and stenosis of left carotid artery

== ENCOUNTER 2019-11-08 11:53 | Day surgery (SDC) | payer SELFPAY ==
[~2019-11-08] VITALS: Ht 172.7 cm; Wt 82.2 kg
--- NOTE | ~2019-11-08 | HEMODYNAMI ---
PATIENT:YUSRA GONZALEZ MEDICAL RECORD: [id number] : 68 LOCATION:[facility] ADMISSION DATE: 11/08/19 Generatedon:11/08/201915:05 Patient name: YUSRA GONZALEZ Patient #: [id number] : 1970 Date of study: 11/08/2019 Page: Of Hemodynamic Procedure Report Patient Data Patient Demographics Procedure consent was obtained First Name: YUSRA Gender: Male Last Name: CARLOS : 1970 Middle Initial: A Age: 49 year(s) Patient #: [id number] Race: SSN: [id number] Additional ID: [id number] Contact details Address: [facility] [address] State: [place] City: [place] Zip code: [address] Past Medical History Allergies: No known allergies Admission Admission Data Admission Date: 11/08/2019 Admission Time: 11:53 Arrival Date: 11/08/2019 Arrival Time: 0:00 Height (in.): 68.11 BSA: 1.96 (m2) Height (cm.): 173 BMI: 27.4 (kg/m2) Weight (lbs.): 180.78 Weight (kg.): 82 Lab Results Lab Result Date: 11/08/2019 Lab Result Time: 0:00 Biochemistry Name Units Result Min Max BUN mg/dl 31 --(----)-* 7 18 Creatinine mg/dl 1.6 --(----)-* 0.6 1.3 eGFR ml/min 49 *-(----)-- 90 120 NONAFRICAN CBC Name Units Result Min Max Hematocrit % 52.1 --(---*)-- 42 54 Hemoglobin g/dl 17.1 --(---*)-- 13.5 17.5 Procedure Procedure Types Cath Procedure Diagnostic Procedure Sedation Charges Moderate Sedation up to 15 minutes PCI Procedure Coronary Stent Coronary Stent Initial Hemochron ACT Test Procedure Description Procedure Date Procedure Date: 11/08/2019 Procedure Start Time: 14:45 Procedure End Time: 14:56 Procedure Staff Name Function Adilson Jennings RN Nurse Karl Foley MD Performing Physician Atif High RT Monitor Elizabeth Prieto RT Scrub Procedure Data Cath Procedure Fluoroscopy Diagnostic fluoroscopy Total fluoroscopy Time: 2.2 time: 2.2 min min Diagnostic fluoroscopy Total fluoroscopy dose: 288 dose: 288 mGy mGy Contrast Material Contrast Material Type Amount (ml) Isovue 300 37 Entry Location Entry Primary Successful Side Size Upsize Upsize Entry Closure Succes sful Closure Location (Fr) 1 (Fr) 2 (Fr) Remarks Device Remarks Femoral Left 6 Fr Exoseal artery Short Estimated blood loss: 10 ml Procedure Complications No complications Procedure Medications Medication Administration Route Dosage Oxygen etCO2 Nasal cannula 2 l/min Lidocaine 2% added to field 20 Heparin Flush Bag added to field 2 bags (1000units/500ml NS) 0.9% NaCl I.V. 100 ml/hr Heparin Bolus I.V. 5000 units Versed I.V. 1 mg Fentanyl I.V. 50 mcg Lopressor I.V. 5 mg Hemodynamics Rest BSA: 1.96 (m2) HGB: 17.1 (g/dl) O2 Consumption: Estimated: 245.05 (ml/min) O2 Co nsumption indexed: Estimated:125.03 (ml/min/m) Heart Rate: 84 (bpm) Snapshots Pre Cath Intra NCS Post Cath Vital Signs Time Heart Resp SPO2 etCO2 NIBP (mmHg) Rhythm Pain Sedation Rate (ipm) (%) (mmHg) Status Level (bpm) 14:14:11 94 30 98 0 168/135(153) NSR 0 (11) 10(A) , No pain 14:18:38 96 30 97 0 172/126(145) NSR 0 (11) 10(A) , No pain 14:23:04 96 16 100 23.2 177/136(155) NSR 0 (11) 10(A) , No pain 14:27:28 96 25 97 19.5 173/136(153) NSR 0 (11) 10(A) , No pain 14:31:55 98 22 95 30.7 176/134(160) NSR 0 (11) 10(A) , No pain 14:36:21 96 19 97 30 167/128(143) NSR 0 (11) 10(A) , No pain 14:40:45 94 20 98 30 168/124(141) NSR 0 (11) 10(A) , No pain 14:45:07 93 22 93 27.7 165/126(143) NSR 0 (11) 10(A) , No pain 14:49:23 83 22 93 27 145/116(127) NSR 0 (11) 10(A) , No pain 14:54:14 80 18 92 12.7 142/113(130) NSR 0 (11) 10(A) , No pain Medications Time Medication Route Dose Verified Delivered Reason Notes Effectiveness by by 14:23:12 Oxygen etCO2 2 Karl Sevenie used for Nasal l/min St Jian Jennings RN procedure cannula 14:23:19 Lidocaine 2% added 20ml Karl Karl for local to vial [facility] anesthetic field MD SAEED 14:23:25 Heparin Flush added 2 Karl Karl used for Bag to bags [facility] procedure (1000units/500ml field MD SAEED NS) 14:23:34 0.9% NaCl I.V. 100 Karl De Anda Per physician ml/hr St Jian Jennings RN, MD 14:44:37 Versed I.V. 1 mg Karl De Anda for sedation St Jian Jennings RN, MD 14:44:42 Fentanyl I.V. 50 Karl Buffie for sedation mcg St Jian Jennings RN, MD 14:45:00 Heparin Bolus I.V. 5000 Karl Amezcuaie for VERIF IED units St Jian Jennings RN anticoagulation WITH DR MD MCFARLAND 14:47:50 Lopressor I.V. 5 mg Karl De Anda Per physician St Jian Jennings RN, MD Procedure Log Time Note 13:27:44 Informed consent obtained and on chart 13:28:41 Procedure Status PCI. 13:28:44 Time tracking: Regular hours (M-F 7:00 - 5:00) 13:28:51 Plan of Care:Hemodynamics will remain stable., Cardiac rhythm will remain stable., Comfort level will be maintained., Respiratory function will remain adequate., Patient/ family verbilizes understanding of procedure., Procedure tolerated without complication., Recovers from procedure without complications.. 13:29:06 Patient allergic to No known allergies 13:30:13 Lab Result : Hemoglobin 17.1 g/dl 13:30:13 Lab Result : Hematocrit 52.1 % 13:30:13 Lab Result : eGFR NONAFRICAN 49 ml/min 13:30:13 Lab Result : BUN 31 mg/dl 13:30:13 Lab Result : Creatinine 1.6 mg/dl 13:30:22 Arrival Date: 11/08/2019 12:00:00 AM 13:30:28 Patient Height : 68.11 inches 13:31:09 Patient Weight : 180.78 lbs 13:33:48 Lab results completed and on chart. 13:33:57 Risk of Mortality: 0.1 13:34:01 Risk of blood transfusion: 0.1 13:34:05 Risk of JÚNIOR: 4.2 13:43:38 Adilson Jennings RN sent for patient. Start room use. 14:12:49 Patient received from Pre/Post Procedure Room to CCL 1 Alert and oriented. Tansferred to table in Supine position. 14:12:51 Warm blankets applied, and keke hugger turned on for patient comfort. 14:12:52 Correct patient and procedure confirmed by team. 14:12:53 ECG and BP/O2 sat monitors applied to patient. 14:12:54 Vital chart was started 14:12:55 Baseline sample Acquired. 14:13:02 Rhythm: sinus rhythm 14:13:08 Full Disclosure recording started 14:13:11 - 14:13:19 H&P Date Dictated: 11/08/2019 H&P Addendum completed by physician on day of procedure. (MUST COMPLETE FOR ALL OUTPATIENTS), New H&P dictated by physician.. 14:13:21 Pre-procedure instructions explained to patient. 14:13:22 Pre-op teaching completed and patient verbalized understanding. 14:13:25 Family in patients room. 14:13:27 Patient NPO since Midnight. 14:13:34 Is the patient allergic to Iodine/contrast media? No. 14:13:37 Was the patient premedicated? Yes 14:16:13 Is patient on blood thinner?Yes 14:16:18 ACC The patient was administered the following blood thiners within the last 24 hours: ACCPlavix 14:16:25 Patient diabetic? No. 14:16:31 ----Pre-sedation anethsthesia assessment.---- 14:16:35 Previous problem with sedation/anesthesia? No ? 14:16:37 Snore? Yes 14:16:48 Sleep apnea? No 14:16:50 Deviated septum? Unknown 14:16:53 Opens mouth fully? Yes 14:16:56 Sticks out tongue? Yes 14:16:59 Airway obstruction? No ? 14:17:03 Dentures? No ? 14:17:12 Pre procedure: left dorsailis pedis pulse 2+ Normal; easily identifiable; not easily obliterated 14:17:25 IV patent on arrival in left forearm with 0.9% NaCl at [facility]. 14:17:37 Left groin area was prepped with chlora-prep and draped in sterile fashion 14:17:39 Alarms reviewed by R. N. 14:17:40 Sharps counted by scrub and verified by R.N. 14:17:47 ACIST Syringe (41929) opened to sterile field. 14:17:48 Bag Decanter (2002S) opened to sterile field. 14:17:49 Medline Cath Pack ([id number]) opened to sterile field. 14:17:51 ACIST Hand Control (05956) opened to sterile field. 14:17:53 ACIST Manifold (35518) opened to sterile field. 14:17:55 Tegaderm 4 x 4 (1626W) opened to sterile field. 14:17:57 EMERALD Guide Wire (643-917) opened to sterile field. 14:18:18 SHEATH 6FR [place] (LXX608) opened to sterile field. 14:18:41 INFLATOR Merit BasixCompak (DO9907) opened to sterile field. 14:23:12 Oxygen 2 l/min etCO2 Nasal cannula was administered by Adilson Jennings RN; used for procedure; Verbal order read back and verified. 14:23:19 Lidocaine 2% 20ml vial added to field was administered by Karl Foley MD; for local anesthetic; Verbal order read back and verified. 14:23:25 Heparin Flush Bag (1000units/500ml NS) 2 bags added to field was administered by Karl Foley MD; used for procedure; Verbal order read back and verified. 14:23:34 0.9% NaCl 100 ml/hr I.V. was administered by Adilson Jennings RN; Per physician; Verbal order read back and verified. :33 Final Timeout: patient, procedure, and site verified with staff and physician. All members of the team are in agreement. : --------ALL STOP TIME OUT------ : Physician arrived 14:44:37 Versed 1 mg I.V. was administered by Adilson Jennings RN; for sedation; Verbal order read back and verified. 14:44:38 Left groin site verified by team. 14:44:41 Fire Safety Assessment: A--An alcohol-based skin anteseptic being used preoperatively., C--Open oxygen or nitrous oxide is being used., D--An ESU, laser, or fiber-optic light is being used. 14:44:42 Fentanyl 50 mcg I.V. was administered by Adilson Jennings RN; for sedation; Verbal order read back and verified. 14:44:45 Physical assessment completed. ASA score P 3 - A patient with severe systemic disease as per Karl Foley MD. 14:44:50 3a) 45-59 Moderately reduced kidney function. 14:44:53 Maximum allowable contrast dose (3.7 X eGFR X 0.75)136 ml. 14:44:57 Sedation plan: IV Moderate Sedation Medication:Versed, Fentanyl 14:45:00 Heparin Bolus 5000 units I.V. was administered by Adilson Jennings RN; for anticoagulation; VERIFIED WITH DR MCFARLAND Verbal order read back and verified. 14:45:00 Procedure started. 14:45:02 Local anesthetic to left femerol artery with Lidocaine 2% by Karl Foley MD.INITIAL ACCESS ONLY 14:45:08 A 6 Fr Short sheath was inserted into the Left Femoral artery 14:45:42 Vito Ac 300cm wire opened to sterile field. 14:45:50 GUIDE 6FR XBLAD 3.5 catheter ([id number]) opened to sterile field. 14:45:59 6 Fr XBLAD 3.5 guide catheter was inserted over the wire 14:47:08 Zero performed for pressure channel P1 14:47:50 Lopressor 5 mg I.V. was administered by Adilson Jennings RN; Per physician; Verbal order read back and verified. 14:48:48 Wire advanced across lesion. 14:51:01 ACC Pre-intervention ZURDO Flow is 3. 14:51:08 Pre PCI Site: [place] dCirc has 80% stenosis. 14:51:10 Place stent Inflation Number: 1 A INTEGRITY RX 3.0 x 15 stent ([id number]) was prepped and advanced across the Dist CX . The stent was deployed at 14 RAVEN for 0:30 (min:sec) . 14:51:42 Stent catheter was removed intact over wire. 14:51:44 Wire removed. 14:51:50 Post PCI Site: [place] dCirc has 0% stenosis. 14:51:54 ACC Post-intervention ZURDO Flow is 3. 14:51:57 Guide catheter removed. 14:52:02 EXOSEAL 6Fr (EX600) opened to sterile field. 14:52:09 Sheath removed intact; hemostasis achieved with Exoseal to the Left Femoral artery. 14:52:11 Procedure ended.(Physican Out) 14:55:02 Fluoroscopy time 02.20 minutes. 14:55:07 Fluoroscopy dose: 288 mGy 14:55:07 Flurop Dose total: 288 14:55:14 Dose Area Product 63568 mGy/cm. 14:55:19 Contrast amount:Isovue 300 37ml. 14:55:21 Maximum allowable dose exceeded? No. 14:55:22 Sharps counted by scrub and verified by R.N. 14:55:24 Insertion/operative site no bleeding no hematoma. 14:55:27 Post-op/insertion site Left Femoral artery dressed using a 4 x 4 and Tegaderm. 14:55:31 Post left femerol artery:stable, soft, clean and dry 14:55:33 Post Procedure Pulses reassessed and unchanged 14:55:35 Post-procedure physical assessment completed. ASA score P 3 - A patient with severe systemic disease as per Karl Foley MD. 14:55:44 Post procedure rhythm: unchanged. 14:55:46 Estimated blood loss: 10 ml 14:55:48 Patient needs reinforcement of post procedure teaching. 14:55:48 Post procedure instruction explained to patient.Patient verbalizes understanding. 14:56:00 Procedure type changed to Cath procedure, Diagnostic procedure, Sedatio n Charges, Moderate Sedation up to 15 minutes, PCI procedure, Coronary Stent, Coronary Stent Initial, Hemochron ACT Test 14:56:27 Procedure and supply charges have been captured, reviewed, submitted an d are correct. 14:56:29 Procedure Complication : No complications 14:56:31 Vital chart was stopped 14:56:33 See physician's report for complete and final results. 14:56:33 Operative report dictated upon procedure completion. 14:56:34 Report given to Pre/Post Procedure Room. 14:56:36 Patient transfered to Pre/Post Procedure Room with Stretcher. 14:56:38 Full Disclosure recording stopped 14:56:38 Procedure ended. 14:58:22 ACC-PCI Only Patient was given prescriptions, or instructed by Karl Foley MD to start/continue the following medications upon discharge: Aspirin, Plavix 14:58:24 End room use (Document Last) 14:58:42 End room use (Document Last) 14:58:55 End room use (Document Last) 14:58:55 Elizabeth Prieto RT(R) (CV) was relieved by Atif High RT(R) as monitoring person 14:59:15 End room use (Document Last) 14:59:20 End room use (Document Last) 14:59:20 Atif High RT(R) was relieved by Atif High RT(R) as monitoring perso n 15:05:37 ACT drawn and resulted at 275 seconds. (normal therapeutic range 180-24 0 seconds). Intervention Summary Intervention Notes Time ActionType Lesion and Equipment Action# Pressure Duration Attributes Used 14:51:10 Place stent Dist CX INTEGRITY RX 1 14 00:30 3.0 x 15 stent ([id number]) Device Usage Item Name Manufacture Quantity Catalog Hospital Part Current Minima l Lot# / Number Charge Number Stock Stock Serial# Code ACIST Acist 1 50619 158904 195987 897922 20 Syringe Medical (21195) Systems Inc Bag Decanter Microtek 1 830386 64519 227295 5 () Medical Inc. Medline Cath Medline 1 [id number] 129902 31770 892979 5 Pack ([id number]) ACIST Hand Acist 1 52472 378350 249999 354289 5 Control Medical (30735) Systems Inc ACIST Acist 1 90147 360788 009140 228462 5 Manifold Medical (00533) Systems Inc Tegaderm 4 x 3M 1 1626W 897452 199936 326750 5 4 (1626W) EMERALD Cardinal 1 502-455 258037 210407 806106 5 Guide Wire Health (502-455) SHEATH 6FR Terumo 1 CNP753 996257 501293 737169 40 [place] (HIP378) INFLATOR Merit 1 RI6134 177006 982543 318500 15 Merit Medical BasixCompak (GI6784) Asahi Minamo Asahi Intecc 1 [id number] 863010 2541527 672301 0 300cm wire GUIDE 6FR Cardinal 1 [id number] 019628 646774 798614 10 XBLAD 3.5 Health catheter (15117166) INTEGRITY RX Medtronic 1 [id number] 363342 947578 826522 5 [id number] 3.0 x 15 stent ([id number]) EXOSEAL 6Fr Cardinal 1 EX600 102963 796202 939593 10 (EX600) Health Signature Audit [place] Stage Time Signature Unsigned Intra-Procedure 11/08/2019 Atif High 2:58:42 PM RT(R) Intra-Procedure 11/08/2019 Adilson Jennings RN 2:59:15 PM Intra-Procedure 11/08/2019 Karl Duffy RT(R) 3:00:01 PM Jian SAEED 11/08/2019 3:05:34 PM Intra-Procedure 11/08/2019 Atif High 3:05:53 PM RT(R) [id number] [place] [address]
--- NOTE | ~2019-11-08 | OP ---
PATIENT NAME: YUSRA GONZALEZ MEDICAL RECORD: [id number] :68 LOCATION:D.CAT ADMISSION DATE: SURGEON: JOE SCHAEFFER MD DATE OF OPERATION: 11/08/2019 STENT REPORT After a 6-Belarusian sheath placed in the left femoral artery, XB LAD guide catheter provided excellent guide catheter support followed by 300 cm Whisper wire placed across the tightly occluded 90% stenosed circumflex distal portion of vessel. Stent deployed was a 3.0 x 12 Integrity nondrug eluting stent up to 15 atmospheres. Final angiography shows excellent resolution 90% plus stenosis, no significant residual. ZURDO flow was 3 throughout the procedure. The patient previously on Plavix. Heparin was used during the case. Sheath was closed with ExoSeal device. TRANSINT:[id number] Voice Confirmation ID: [id number] DOCUMENT ID: [id number] JOE SCHAEFFER MD CC: [id number] DICTATION DATE: 11/08/19 1500 SPICE FUMIGATOR: 11/08/19 2326 [facility] SDC 11/08/19 [address] [place] [address]
--- NOTE | ~2019-11-08 | HP ---
PATIENT: YUSRA GONZALEZ MEDICAL RECORD: [id number] ACCOUNT: [id number] LOCATION:[facility] : 68 ADMISSION DATE: 11/08/19 PCP: No PCP HISTORY AND PHYSICAL EXAMINATION HISTORY OF PRESENT ILLNESS: This is a 49-year-old gentleman with a history of coronary artery disease, status post intervention. He has known ischemic cardiomyopathy with EF 15%. This is in excess of his coronary artery disease; however, he does have residual circumflex disease, 90% known circ. He has been having intermittent angina since his last intervention despite medical therapy including beta blockade, CRISTOBAL inhibitor for his myopathy as well as Aldactone. He is being brought back for revascularization of his circumflex. PAST MEDICAL HISTORY: Includes: 1. History of methamphetamine abuse. 2. Hypertension not controlled. 3. Dyslipidemia. 4. Cardiomyopathy. PHYSICAL EXAMINATION: GENERAL: Pleasant, in no acute distress, appears stated age. HEENT: Normocephalic, atraumatic. NECK: No JVD or bruit. HEART: Regular. LUNGS: Bro clear. ABDOMEN: Soft, nontender. EXTREMITIES: Pulse 2+. No edema. IMPRESSION AND PLAN: Intervention to the circumflex today. NTS:[id number] Voice Confirmation ID: [id number] DOCUMENT ID: [id number] JOE SCHAEFFER MD CC: [id number] DICTATION DATE: 11/08/19 153 EDUCATIONAL MANAGER: 11/08/19 183 [facility] 11/08/19 [facility] [id number]
[~2019-11-08 11:53] MED LIST changes: +ALDACTONE25 MG PO; +BAYER CHEWABLE81 MG PO; +PLAVIX75 MG PO
[2019-11-08 12:20] VITALS: BP 189/139; Ht 172.7 cm; Wt 82.2 kg
[2019-11-08 12:31] LABS: BASOPHILS 0.5 % (0-2); EOSINOPHILS 3.4 % (0-7); HEMATOCRIT 52.1 % (42.0-54.0); HEMOGLOBIN 17.1 g/dL (13.5-17.5); IMMATURE GRANULOCYTES 0.3 % (0-5); LYMPHOCYTES 17.6 % (15-50); MCH 30.3 pg (26.0-34.0); MCHC 32.8 g/dL (31.0-37.0); MCV 92.4 fL (80.0-100.0); MEAN PLATELET VOLUME 9.6 fL (7.4-10.4); MONOCYTES 5.4 % (2-11); NEUTROPHILS 72.8 % (40-80); PLATELET COUNT 261 10x3/uL (130-400); RBC 5.64 10x6/uL (4.20-6.10); WBC 9.2 10x3/uL (4.8-10.8)
[2019-11-08 12:37] LABS: ANION GAP 9.4 mmol/L (8-16); CALCIUM 8.9 mg/dL (8.5-10.1); CARBON DIOXIDE 28.2 mmol/L (21.0-32.0); CREATININE - SERUM 1.6 mg/dL (0.6-1.3); POTASSIUM - SERUM 4.6 mmol/L (3.5-5.1)
--- NOTE | 2019-11-08 15:15 | NUR ---
PT REC'D TO ROOM 4 VIA STRETCHER FROM BOOM PUMP OPERATOR. MONITORS ESTAB. NO FAMILY AT BS. SEE LOGISTICS ASSOCIATE. ALARMS ON AND C/L IN REACH.
--- NOTE | 2019-11-08 15:30 | NUR ---
L GROIN SITE SOFT, NO S/S BLEEDING OR HEMATOMA. PULSES PALP. SKIN CLAMMY, PT RESPONDS EASILY, FOLLOWS COMMANDS. B/P 128/98. ALARMS ON AND C/L IN REACH. WILL CONT CLOSE MONITORING.
--- NOTE | 2019-11-08 15:51 | NUR ---
PT'S BROTHER HERE, UPDATE GIVEN AND QUESTIONS ANSWERED.
--- NOTE | 2019-11-08 16:06 | NUR ---
L GROIN SITE C/D/I, NO S/S BLEEDING OR HEMATOMA. PULSES PALP. PT AWAKENS EASILY, STILL DROWSY. B/P 121/94. HR 75. ALARMS ON AND C/L IN REACH.
--- NOTE | 2019-11-08 16:15 | NUR ---
L GROIN SITE SOFT, NO S/S BLEEDING OR HEMATOMA. PULSES PALP. VSS. ALARMS ON AND C/L IN REACH.
--- NOTE | 2019-11-08 16:44 | NUR ---
L GROIN SITE C/D/I, NO S/S BLEEDING OR HEMATOMA. DR. SCHAEFFER IN TO SEE PT. PULSES PALP. VSS. PT TAKING SIPS OF WATER WITHOUT DIFFICULTY. C/L IN REACH.
--- NOTE | 2019-11-08 17:14 | NUR ---
VSS. L GROIN SITE SOFT, NO S/S BLEEDING OR HEMATOMA. PULSES PALP. PT MORE ALERT, DENIES PAIN OR NEEDS. ALARMS ON AND C/L IN REACH.
--- NOTE | 2019-11-08 17:45 | NUR ---
L GROIN SITE C/D/I, NO S/S BLEEDING OR HEMATOMA. PULSES PALP. BEGIN GRADUALLY ELEVATING HOB PER MD ORDERS. WILL CONT CLOSE MONITORING. C/L IN REACH.
--- NOTE | 2019-11-08 18:06 | NUR ---
L GROIN SITE SOFT, NO S/S BLEEDING OR HEMATOMA. HOB ELEVATED. SANDWICH TRAY AND WATER PROVIDED. VSS. C/L IN REACH.
--- NOTE | 2019-11-08 18:30 | NUR ---
VSS. L GROIN SITE SOFT, NO S/S BLEEDING OR HEMATOMA. PULSES PALP. PT ATE ALL OF SANDWICH, NO N/V. DENIES PAIN OR NEEDS.
--- NOTE | 2019-11-08 18:35 | NUR ---
ALL DISCHARGE INSTRUCTIONS REVIEWED WITH PT, INCLUDING RESTRICTIONS, MEDS AND F/U APPT. PT VERBALIZES UNDERSTANDING. GIVEN JELLO AND PUDDING PER REQUEST. PT BROTHER WILL BE HERE AT 1900 FOR RIDE HOME.
--- NOTE | 2019-11-08 18:50 | NUR ---
L GROIN SITE C/D/I, NO S/S BLEEDING OR HEMATOMA. PIV D/C'D INTACT, DSG APPLIED. PT ALLOWED UP TO GET DRESSED AND GO TO BR INDEPENDENTLY.
--- NOTE | 2019-11-08 19:00 | NUR ---
PT D/C'D VIA WC TO PRIVATE VEHICLE WITH ALL PAPERWORK, MED SCRIPTS, AND BELONGINGS.
== END 2019-11-08 19:00 | disposition home or self-care (01) ==
LOC: D.CATH 11:53
PROVIDERS: ATTEND Internal Medicine Interventional Cardiology
DX: I25.110 Atherosclerotic heart disease of native coronary artery with unstable angina pectoris (principal); F15.11 Other stimulant abuse, in remission; I10 Essential (primary) hypertension; E78.5 Hyperlipidemia, unspecified; I42.9 Cardiomyopathy, unspecified